=== PATIENT | female | born 2000 | race Caucasian/White ===

== ENCOUNTER 2022-07-14 20:34 | Emergency (ER) | payer OTHER ==
[2022-07-14 20:48] VITALS: BMI 25.9
[2022-07-14] MEDS ORDERED: DEXAMETHASONE 4 MG TABLET (FP) PO ONE (21:25)
[2022-07-14] MEDS ORDERED: DEXAMETHASONE 4 MG TABLET (FP) ONE (21:27)
[2022-07-14] MEDS ORDERED: ALBUTEROL SO4 2.5/IPRATROPIUM 0.5 INH SOL 3 ML VIAL.NEB. NEB ONE (21:27)
[2022-07-14] MEDS ORDERED: ALBUTEROL SO4 2.5/IPRATROPIUM 0.5 INH SOL 3 ML VIAL.NEB. NEB SCH (21:30)
[2022-07-15 02:42] VITALS: BP 120/68; PULSE 95; RESP 18; TEMP 98.1
== END 2022-07-15 01:49 | disposition home or self-care (01) ==
LOC: JER 20:34
PROC: 3E0F7GC Introduction of Other Therapeutic Substance into Respiratory Tract, Via Natural or Artificial Opening (ICD-10-PCS; principal; 2022-07-14)
DX: O99.513 Diseases of the respiratory system complicating pregnancy, third trimester (principal)
CPT/HCPCS: 0241U-QW; 99283-25

== ENCOUNTER 2023-11-22 18:40 | Emergency (ER) | payer OTHER ==
[2023-11-22 18:47] VITALS: BP 132/70; PULSE 102; RESP 18; TEMP 97; BMI 24.5
[2023-11-22] MEDS ORDERED: ONDANSETRON 4 MG/2 ML VIAL ONE (19:59)
[2023-11-22] MEDS: ONDANSETRON *ODT* 4 MG TABLET SL ONE (20:31)
[2023-11-22] MEDS: SODIUM CHLORIDE 0.9% 500 ML INFUS.BAG IV ONE (20:31)
[2023-11-22] MEDS: ONDANSETRON 4 MG/2 ML VIAL IVPUSH ONE (20:31)
[2023-11-22 20:56] LABS: BASO % 0.1 % (0-2.0); EOS % 1.1 % (0-4.5); HEMOGLOBIN 15.8 GM/dL (10.7-15.3); LYMPH % 8.2 % (8-40); MCH 30.3 pg (25.7-33.7); MCHC 33.5 g/dl (32.0-36.0); MEAN CELL VOLUME 90.3 fl (80-96); MEAN PLT VOLUME 7.3 fl (7.5-11.1); MONO % 4.4 % (3.8-10.2); NEUT % 86.2 % (42.8-82.8); PLATELET COUNT 328 10^3/uL (134-434); RBC 5.21 M/mm3 (3.60-5.2); RDW 13.1 % (11.6-15.6); WHITE BLOOD COUNT 9.5 K/mm3 (4.0-10.0)
[2023-11-22 21:08] LABS: POTASSIUM 4.1 mmol/L (3.5-5.1)
[2023-11-22 21:10] LABS: CALCIUM 9.3 mg/dL (8.5-10.1)
[2023-11-22 21:11] LABS: ALBUMIN 4.2 g/dl (3.4-5.0); MAGNESIUM 2.2 mg/dL (1.8-2.4)
[2023-11-22 21:14] LABS: CREATININE 0.7 mg/dL (0.55-1.3)
[2023-11-22 21:15] LABS: TOT PROT 7.7 g/dl (6.4-8.2)
[2023-11-22 21:16] LABS: BILIRUBIN,TOTAL 1.8 mg/dL (0.2-1)
== END 2023-11-23 01:04 | disposition home or self-care (01) ==
LOC: JER 18:40
PROC: 3E030GC Introduction of Other Therapeutic Substance into Peripheral Vein, Open Approach (ICD-10-PCS; principal; 2023-11-22)
DX: O21.9 Vomiting of pregnancy, unspecified (principal); O26.891 Other specified pregnancy related conditions, first trimester; R10.30 Lower abdominal pain, unspecified; Z3A.01 Less than 8 weeks gestation of pregnancy; Z20.822 Contact with and (suspected) exposure to COVID-19
CPT/HCPCS: 0241U-QW; 36415; 76817-TC; 80053; 83690; 83735; 84702; 84703; 85025; 99284-25

== ENCOUNTER 2023-12-15 08:07 | Emergency (ER) | payer SELFPAY ==
[2023-12-15 08:29] VITALS: BP 127/60; RESP 20; TEMP 98.6; BMI 26.4
[2023-12-15] MEDS ORDERED: ONDANSETRON *ODT* 4 MG TABLET ONE (08:53)
[2023-12-15] MEDS ORDERED: DEXAMETHASONE SOD PHOSPHATE 10 MG/1 ML VIAL ONE (08:53)
[2023-12-15] MEDS ORDERED: IBUPROFEN 600 MG TABLET (FP) PO ONE (08:57)
[2023-12-15] MEDS: ONDANSETRON *ODT* 4 MG TABLET SL ONE (09:02)
[2023-12-15] MEDS: DEXAMETHASONE 4 MG TABLET (FP) PO ONE (09:02)
[2023-12-15] MEDS: IBUPROFEN 600 MG TABLET (FP) PO ONE (09:02)
[2023-12-15 09:27] LABS: THROAT:GRP A STREP DETECTED (NOTDETECTED)
[2023-12-15] MEDS ORDERED: ACETAMINOPHEN INJECTION 100 ML IVPB ONE (09:35)
[2023-12-15] MEDS ORDERED: PENICILLIN G BENZATHINE 1,200,000 UNIT/2 ML PFS IM ONE (09:38)
[2023-12-15] MEDS: PENICILLIN G BENZATHINE 1,200,000 UNIT/2 ML PFS IM ONE (09:43)
[2023-12-15 10:44] VITALS: PULSE 73
== END 2023-12-15 10:44 | disposition home or self-care (01) ==
LOC: JER 08:07
DX: J02.0 Streptococcal pharyngitis (principal); R52 Pain, unspecified; R50.9 Fever, unspecified; R53.1 Weakness; R11.0 Nausea; R51.9 Headache, unspecified; Z20.822 Contact with and (suspected) exposure to COVID-19
CPT/HCPCS: 0241U-QW; 87651; 99284-25; Q0162